=== PATIENT | female | born 2005 | race Caucasian/White ===

== ENCOUNTER 2024-07-12 18:45 | Emergency (ER) | payer SELFPAY ==
[~2024-07-12] VITALS: Ht 154.9 cm; Wt 59.0 kg
[2024-07-12 19:06] VITALS: TEMP 98.2; O2SAT 99
[2024-07-12] MEDS: IBUPROFEN 600MG TABLET PO ONE (20:49)
[2024-07-12 22:50] VITALS: BP 102/57; PULSE 83; RESP 18; O2SAT 96
== END 2024-07-12 22:50 | disposition home or self-care (01) ==
LOC: ER 18:45
DX: R51.9 Headache, unspecified (principal); R11.2 Nausea with vomiting, unspecified
CPT/HCPCS: 81025; 99282